=== PATIENT | female | born 1995 | race Two or more races ===

== ENCOUNTER 2025-03-04 18:56 | Observation (INO) | payer MEDICAID, OTHER ==
[~2025-03-04] VITALS: Ht 165.1 cm; Wt 108.4 kg
--- NOTE | 2025-03-04 21:03 | DVH ---
BIOPHYSICAL PROFILE HISTORY: [id number] TECHNIQUE: Multiple transabdominal real-time grayscale sonographic images through the gravid uterus of the fetus with duplex Doppler color flow and M-mode spectral analysis FINDINGS: BIOPHYSICAL PROFILE: breathing score: 2 movement score: 2 tone score: 2 Quantitative NICK score: 2 (NICK: 18.3 cm, MVP: 7.1 cm.) Total score: 8/8 The cervix cervix measures 3.2 cm Single live fetus in breech presentation. heart rate 146 beats per minute. Anterior Grade 1 placenta without previa or abruption Single live fetus at 32 weeks 0 days Biophysical profile score 8/8 corresponding to an KARLENE of 04/29/2025. IMPRESSION: 1. Biophysical profile score: 8/8. 2. FHR: 146 bpm 3. Breech presentation 4. Placenta anterior grade 1
--- NOTE | 2025-03-04 22:22 | DVHDS2 ---
Physician Discharge Progress N Final Diagnosis: testing for GDM, A1 Operations or Procedures: Operations or Procedures 30yo IUP@32.0wks VSS NST reactive per RN BPP 11/28 FKC/PTL/preE precautions reviewed. Dr. Ferrell consulted, agrees with POC. Other Interventions Other Interventions [address] [address] Ph: [phone] DIAGNOSTIC IMAGING Diagnostic Imaging Report : [id number] Signed PATIENT: CLARKE FIGUEROA ACCT: [id number] UNIT: [id number] : 1995 LOC: [facility] ROOM / BED: TRIAGE1 / A AGE / SEX: 30 / F ADM STATUS: ADM IN SERVICE 44 ORDERING PHYSICIAN: BOBO ELIZABETH CNM PROCEDURE(s): BPP - BIOPHYSICAL PROFILE REASON: GDMA1 ORDER NUMBER(s): [id number], ACCESSION NUMBER(s): [id number] BIOPHYSICAL PROFILE HISTORY: [id number] TECHNIQUE: Multiple transabdominal real-time grayscale sonographic images through the gravid uterus of the fetus with duplex Doppler color flow and M-mode spectral analysis FINDINGS: BIOPHYSICAL PROFILE: breathing score: 2 movement score: 2 tone score: 2 Quantitative NICK score: 2 (NICK: 18.3 cm, MVP: 7.1 cm.) Total score: 8/8 The cervix cervix measures 3.2 cm Single live fetus in breech presentation. heart rate 146 beats per minute. Anterior Grade 1 placenta without previa or abruption Single live fetus at 32 weeks 0 days Biophysical profile score 8/8 corresponding to an KARLENE of 04/29/2025. IMPRESSION: 1. Biophysical profile score: 8/8. 2. FHR: 146 bpm 3. Breech presentation 4. Placenta anterior grade 1 ATED BY: STORMY BENNETT Jr., DO DICTATED DATE/TIME: 03/04/252100 SIGNED BY: STORMY BENNETT Jr., DO SIGNED DATE/TIME: 03/04/252100 CC: Condition on Discharge: Stable Disposition: Home Discharge Instructions: Diet: Regular Activity: No Restrictions, As Tolerated Medications: see med list Follow Up Care: Specialist: f/u in 1wk Discharge Statement: "Patient was advised to return to the ER or call 911 if any headaches, dizziness, shortness of breath, chest pain, abdominal pain, bleeding, fevers, or worsening of medical condition. Patient was counseled about treatment plan, medications, possible side effects, patientverbalized understanding. All questions were answered to the best of my ability. This discharge took greater then 30 minutes in planning, reviewing documentation, counseling the patient, and discussing with other team members." Visit Coding OBGYN Date of Service: Mar 04, 2025 Billing Provider: BOBO ELIZABETH CNM DEPARTMENT ADMINISTRATOR Common Visit Codes: 26421-[id number] OBS CARE (HIGH) DEPARTMENT ADMINISTRATOR Procedure Codes: 31217-32- NON-STRESS TEST BOBO ELIZABETH CNM Mar 04, 2025 22:22
== END 2025-03-04 21:09 | disposition home or self-care (01) ==
LOC: LDRP 18:56
PROVIDERS: ADMIT Obstetrics & Gynecology; ATTEND Obstetrics & Gynecology
DX: O24.419 Gestational diabetes mellitus in pregnancy, unspecified control (principal); Z3A.32 32 weeks gestation of pregnancy; Z98.890 Other specified postprocedural states
CPT/HCPCS: 59025; 76819; 81002; 82948; 82962; 94760; G0378

== ENCOUNTER 2025-03-11 17:52 | Observation (INO) | payer MEDICAID ==
--- NOTE | 2025-03-11 18:55 | DVH ---
BIOPHYSICAL PROFILE HISTORY: GDMA1 TECHNIQUE: Multiple transabdominal real-time grayscale sonographic images through the gravid uterus of the fetus with duplex Doppler color flow and M-mode spectral analysis FINDINGS: BIOPHYSICAL PROFILE: breathing score: 2 movement score: 2 tone score: 2 Quantitative NICK score: 2 (NICK: 22.6 cm, MVP: 9.7.) consider polyhydramnios. Total score: 8/8 The cervix obscured Single live fetus in cephalic presentation. heart rate 153 beats per minute. Anterior Grade 2 placenta without previa or abruption Single live fetus at 33 weeks 0 days Biophysical profile score 8/8 corresponding to an KARLENE of 04/29/2025 No other measurements given IMPRESSION: 1. Biophysical profile score: 8/8
--- NOTE | 2025-03-11 19:30 | DVHDS2 ---
Physician Discharge Progress N Final Diagnosis: testing for GDM, A1 Operations or Procedures: Operations or Procedures 30yo IUP@33+wks VSS per RN NST reactive FKC/PTL/preE precautions reviewed Dr. Ferrell consulted, agrees with POC. Other Interventions Other Interventions [address] [address] Ph: [phone] DIAGNOSTIC IMAGING Diagnostic Imaging Report : [id number] Signed PATIENT: CLARKE FIGUEROA ACCT: [id number] UNIT: [id number] : 1995 LOC: [facility] ROOM / BED: TRIAGE1 / A AGE / SEX: 30 / F ADM STATUS: ADM IN SERVICE 01 ORDERING PHYSICIAN: BOBO ELIZABETH CNM PROCEDURE(s): BPP - BIOPHYSICAL PROFILE REASON: GDMA1 ORDER NUMBER(s): [id number], ACCESSION NUMBER(s): [id number] BIOPHYSICAL PROFILE HISTORY: GDMA1 TECHNIQUE: Multiple transabdominal real-time grayscale sonographic images through the gravid uterus of the fetus with duplex Doppler color flow and M-mode spectral analysis FINDINGS: BIOPHYSICAL PROFILE: breathing score: 2 movement score: 2 tone score: 2 Quantitative NICK score: 2 (NICK: 22.6 cm, MVP: 9.7.) consider polyhydramnios. Total score: 8/8 The cervix obscured Single live fetus in cephalic presentation. heart rate 153 beats per minute. Anterior Grade 2 placenta without previa or abruption Single live fetus at 33 weeks 0 days Biophysical profile score 8/8 corresponding to an KARLENE of 04/29/2025 No other measurements given IMPRESSION: 1. Biophysical profile score: 8/8 ATED BY: STORMY BENNETT Jr., DO DICTATED DATE/TIME: 03/11/251852 SIGNED BY: STORMY BENNETT Jr., DO SIGNED DATE/TIME: 03/11/251852 CC: Condition on Discharge: Stable Disposition: Home Discharge Instructions: Diet: Consistent carbohydrate Activity: No Restrictions, As Tolerated Medications: see med list Follow Up Care: Specialist: f/u in 1 wk Discharge Statement: "Patient was advised to return to the ER or call 911 if any headaches, dizziness, shortness of breath, chest pain, abdominal pain, bleeding, fevers, or worsening of medical condition. Patient was counseled about treatment plan, medications, possible side effects, patientverbalized understanding. All questions were answered to the best of my ability. This discharge took greater then 30 minutes in planning, reviewing documentation, counseling the patient, and discussing with other team members." Visit Coding OBGYN Date of Service: Mar 11, 2025 Billing Provider: BOBO ELIZABETH CNM RETAIL LOAN OFFICER Common Visit Codes: 70982-[id number] OBS CARE (HIGH) RETAIL LOAN OFFICER Procedure Codes: 49630-30- NON-STRESS TEST BOBO ELIZABETH CNM Mar 11, 2025 19:30
== END 2025-03-11 19:11 | disposition home or self-care (01) ==
LOC: LDRP 17:52
PROVIDERS: ADMIT Obstetrics & Gynecology; ATTEND Obstetrics & Gynecology
DX: O24.419 Gestational diabetes mellitus in pregnancy, unspecified control (principal); Z3A.33 33 weeks gestation of pregnancy; Z98.890 Other specified postprocedural states
CPT/HCPCS: 59025; 76819; 81002; 82948; 82962; 94760; G0378

== ENCOUNTER 2025-03-18 15:06 | Observation (INO) | payer MEDICAID ==
--- NOTE | 2025-03-18 15:59 | DVH ---
BIOPHYSICAL PROFILE HISTORY: GDMA1 TECHNIQUE: Multiple transabdominal real-time grayscale sonographic images through the gravid uterus of the fetus with duplex Doppler color flow and M-mode spectral analysis FINDINGS: BIOPHYSICAL PROFILE: breathing score: 2 movement score: 2 tone score: 2 Quantitative NICK score: 2 (NICK: 23.3 cm, mvp: 7.3cm.) Total score: 8/8 The cervix N/V Single live fetus in cephalic presentation. heart rate 135 beats per minute. Anterior Grade 2 placenta without previa or abruption Single live fetus at 34 weeks 0 days Biophysical profile score 8/8 corresponding to an KARLENE of 04/29/2025. Estimated weight not calculated g IMPRESSION: 1. Biophysical profile score: 8/8. 2. FHR: 135 bpm
--- NOTE | 2025-03-19 07:19 | DVHDS2 ---
Physician Discharge Progress N Final Diagnosis: gdm 34wks Operations or Procedures: Operations or Procedures nst reactive reviwed,sono Condition on Discharge: Good Disposition: Home Discharge Instructions: Diet: Consistent carbohydrate Activity: No Restrictions, As Tolerated Medications: na Follow Up Care: Specialist: 2d Discharge Statement: "Patient was advised to return to the ER or call 911 if any headaches, dizziness, shortness of breath, chest pain, abdominal pain, bleeding, fevers, or worsening of medical condition. Patient was counseled about treatment plan, medications, possible side effects, patientverbalized understanding. All questions were answered to the best of my ability. This discharge took greater then 30 minutes in planning, reviewing documentation, counseling the patient, and discussing with other team members." Visit Coding OBGYN Date of Service: Mar 18, 2025 Billing Provider: PHUONG HORVATH DO SOCIAL SERVICES ANALYST Common Visit Codes: [id number] INP/OBS CARE (HIGH) SOCIAL SERVICES ANALYST Procedure Codes: 82596-62- NON-STRESS TEST PHUONG HORVATH DO Mar 19, 2025 07:19
== END 2025-03-18 16:46 | disposition home or self-care (01) ==
LOC: LDRP 15:06
PROVIDERS: ADMIT Obstetrics & Gynecology; ATTEND Obstetrics & Gynecology
DX: O24.419 Gestational diabetes mellitus in pregnancy, unspecified control (principal); Z3A.34 34 weeks gestation of pregnancy; Z98.890 Other specified postprocedural states
CPT/HCPCS: 59025; 76819; 81002; 82948; 82962; 94760; A4649; G0378

== ENCOUNTER 2025-03-24 06:47 | Observation (INO) | payer MEDICAID ==
[~2025-03-24] VITALS: Ht 165.1 cm; Wt 108.9 kg
[2025-03-24] MEDS ORDERED: PREN-96 PO (19:18)
--- NOTE | 2025-03-24 19:57 | DVH ---
EXAM: US BIOPHYSICAL PROFILE HISTORY: gdma1 COMPARISON: US BIOPHYSICAL PROFILE on DOS: 03/18/25 TECHNIQUE: Transabdominal real time hansen scale, color, and doppler evaluation. Permanent images are maintained in the patient record. FINDINGS: Normal biophysical profile score 8/8. Anterior placenta location. Grade 1 placenta. Normal cardiac heart rate 159 beats per minute. Cephalic presentation. Amniotic fluid index 19.6 cm. No placenta previa or abruption. IMPRESSION: 1. Normal biophysical profile score
[2025-03-24] MEDS ORDERED: FLUC200T PO (20:44)
--- NOTE | 2025-03-24 20:47 | DVHDS2 ---
Physician Discharge Progress N Final Diagnosis: testing for GDM,A1 Secondary Diagnosis: yeast infection in groin and vagina Operations or Procedures: Operations or Procedures 30yo IUP@34.6wks, pt c/o of yeast infection in her vagina and groin after taking macrobid for UTI last week (currently on day 6 of course). Denies UTI s/sx today. UA dip WNL per RN VSS NST reactive per RN visible yeast noted on vagina and groin regions Rx sent for PO diflucan. Pt instructed to finish full course of macrobid. FKC/PTL/preE precautions reviewed Dr. Ferrell consulted, agrees with POC. Condition on Discharge: Stable Disposition: Home Discharge Instructions: Diet: Regular Activity: No Restrictions, As Tolerated Medications: see med list Follow Up Care: Specialist: f/u in 1wk Discharge Statement: "Patient was advised to return to the ER or call 911 if any headaches, dizziness, shortness of breath, chest pain, abdominal pain, bleeding, fevers, or worsening of medical condition. Patient was counseled about treatment plan, medications, possible side effects, patientverbalized understanding. All questions were answered to the best of my ability. This discharge took greater then 30 minutes in planning, reviewing documentation, counseling the patient, and discussing with other team members." Visit Coding OBGYN Date of Service: Mar 24, 2025 Billing Provider: BOBO ELIZABETH CNM [employer] SALES REPRESENTATIVE Common Visit Codes: 93727-[id number] OBS CARE (HIGH) [employer] SALES REPRESENTATIVE Procedure Codes: 49074-56- NON-STRESS TEST BOBO ELIZABETH CNM Mar 24, 2025 20:47
== END 2025-03-24 20:49 | disposition home or self-care (01) ==
LOC: LDRP 19:02
PROVIDERS: ADMIT Obstetrics & Gynecology; ATTEND Obstetrics & Gynecology
DX: O23.43 Unspecified infection of urinary tract in pregnancy, third trimester (principal); N39.0 Urinary tract infection, site not specified; B37.2 Candidiasis of skin and nail; Z3A.34 34 weeks gestation of pregnancy; Z79.899 Other long term (current) drug therapy; Z98.890 Other specified postprocedural states
CPT/HCPCS: 59025; 76819; 81002; 82948; 82962; 94760; A4649; G0378

== ENCOUNTER 2025-04-08 10:56 | Observation (INO) | payer MEDICAID ==
[~2025-04-08 10:56] MED LIST: FLUC200T PO; PREN-96 PO
--- NOTE | 2025-04-08 12:59 | DVH ---
BIOPHYSICAL PROFILE HISTORY: GDMA1 TECHNIQUE: Multiple transabdominal real-time grayscale sonographic images through the gravid uterus of the fetus with duplex Doppler color flow and M-mode spectral analysis FINDINGS: BIOPHYSICAL PROFILE: breathing score: 2 movement score: 2 tone score: 2 Quantitative NICK score: 2 (NICK: 19.95 cm, mvp: 6.65cm.) Total score: 8/8 The cervix N/V Single live fetus in cephalic presentation. heart rate 144 beats per minute. Anterior Grade 2 placenta without previa or abruption Single live fetus at 37 weeks 0 days Biophysical profile score 8/8 corresponding to an KARLENE of April 29, 2025 Estimated weight not calculated at this time Toes and fingers not counted at this time. IMPRESSION: 1. Biophysical profile score: 8/
--- NOTE | 2025-04-09 12:09 | DVHDS2 ---
Physician Discharge Progress N Final Diagnosis: gdm 37wks Operations or Procedures: Operations or Procedures nst reactive reviwed,sono Condition on Discharge: Good Disposition: Home Discharge Instructions: Diet: Consistent carbohydrate Activity: Light activity Medications: na Follow Up Care: Specialist: 4d Discharge Statement: "Patient was advised to return to the ER or call 911 if any headaches, dizziness, shortness of breath, chest pain, abdominal pain, bleeding, fevers, or worsening of medical condition. Patient was counseled about treatment plan, medications, possible side effects, patientverbalized understanding. All questions were answered to the best of my ability. This discharge took greater then 30 minutes in planning, reviewing documenta tion, counseling the patient, and discussing with other team members." Visit Coding OBGYN Date of Service: Apr 08, 2025 Billing Provider: PHUONG HORVATH DO ABSTRACTOR Common Visit Codes: [id number]-[id number] OBS CARE (HIGH) ABSTRACTOR Procedure Codes: 80546-45- NON-STRESS TEST PHUONG HORVATH DO Apr 09, 2025 12:09
== END 2025-04-08 13:05 | disposition home or self-care (01) ==
LOC: LDRP 10:56 → UNDOADMOB 10:56 → LDRP 11:08
PROVIDERS: ADMIT Obstetrics & Gynecology; ATTEND Obstetrics & Gynecology
DX: O24.419 Gestational diabetes mellitus in pregnancy, unspecified control (principal); Z3A.37 37 weeks gestation of pregnancy; Z98.890 Other specified postprocedural states
CPT/HCPCS: 59025; 76819; 81002; 82962; 94760; A4649; G0378

== ENCOUNTER 2025-04-15 10:52 | Observation (INO) | payer MEDICAID ==
--- NOTE | 2025-04-15 11:38 | DVH ---
BIOPHYSICAL PROFILE HISTORY: gdma1 TECHNIQUE: Multiple real-time grayscale sonographic images through the gravid uterus of the fetus with duplex Doppler color flow. FINDINGS: BIOPHYSICAL PROFILE: breathing score: 2 movement score: 2 tone score: 2 Quantitative NICK score: 2 Total score: 8 out of 8 Single live intrauterine . Cephalic lie. heart rate 143 beats per minute. Placenta anteriorly positioned. NICK 15.3 cm IMPRESSION: Biophysical profile score: 8 out of 8
--- NOTE | 2025-04-15 17:59 | DVHDS2 ---
Physician Discharge Progress N Final Diagnosis: gdm 38wks Operations or Procedures: Operations or Procedures nst reactive reviwed,sono Condition on Discharge: Good Disposition: Home Discharge Instructions: Diet: Consistent carbohydrate Activity: No Restrictions, As Tolerated Medications: na Follow Up Care: Specialist: 1w Discharge Statement: "Patient was advised to return to the ER or call 911 if any headaches, dizziness, shortness of breath, chest pain, abdominal pain, bleeding, fevers, or worsening of medical condition. Patient was counseled about treatment plan, medications, possible side effects, patientverbalized understanding. All questions were answered to the best of my ability. This discharge took greater then 30 minutes in planning, reviewing documentation, counseling the patient, and discussing with other team members." Visit Coding OBGYN Date of Service: Apr 15, 2025 Billing Provider: PHUONG HORVATH DO TOPSTITCHER ZIGZAG Common Visit Codes: 76978-[id number] OBS CARE (HIGH) TOPSTITCHER ZIGZAG Procedure Codes: 75008-06- NON-STRESS TEST PHUONG HORVATH DO Apr 15, 2025 17:59
== END 2025-04-15 12:10 | disposition home or self-care (01) ==
LOC: UNDOADMOB 10:52 → LDRP 10:52
PROVIDERS: ADMIT Obstetrics & Gynecology; ATTEND Obstetrics & Gynecology
DX: O24.419 Gestational diabetes mellitus in pregnancy, unspecified control (principal); Z3A.38 38 weeks gestation of pregnancy; Z98.890 Other specified postprocedural states
CPT/HCPCS: 59025; 76819; 81002; 82948; 82962; 94760; A4649; G0378

== ENCOUNTER 2025-04-22 08:42 | Observation (INO) | payer MEDICAID ==
--- NOTE | 2025-04-22 09:28 | DVH ---
EXAM: US BIOPHYSICAL PROFILE HISTORY:: GDMA1 COMPARISON: US BIOPHYSICAL PROFILE on DOS: 04/15/25 TECHNIQUE:: Transabdominal and endovaginal real time hansen scale, color, and doppler evaluation. Permanent images are maintained in the patient record. FINDINGS: Biophysical profile score 8/8. heart rate 132 beats per minute. Cephalic presentation. Amniotic fluid index 14.9 cm. IMPRESSION: 1. Normal biophysical profile score 8/8.
== END 2025-04-22 10:17 | disposition home or self-care (01) ==
LOC: LDRP 08:42
PROVIDERS: ADMIT Obstetrics & Gynecology; ATTEND Obstetrics & Gynecology
DX: O24.419 Gestational diabetes mellitus in pregnancy, unspecified control (principal); Z3A.39 39 weeks gestation of pregnancy; Z98.890 Other specified postprocedural states
CPT/HCPCS: 59025; 76819; 81002; 82948; 94760; A4649; G0378